=== PATIENT | male | born 2000 | race Caucasian/White ===

== ENCOUNTER 2025-06-14 10:54 | Emergency (ER) | payer BC, SELFPAY ==
[2025-06-14 10:57] VITALS: BP 138/83; PULSE 82; RESP 16; TEMP 36.8; O2SAT 98
[2025-06-14 11:54] VITALS: BP 126/82; PULSE 68; RESP 18; O2SAT 99
[2025-06-14 12:00] VITALS: BP 151/80; PULSE 76; RESP 18; O2SAT 97
--- NOTE | 2025-06-14 12:31 | EKG12_ITS ---
Test Reason : CP Blood Pressure : */* mmHG Vent. Rate : 76 BPM Atrial Rate : 76 BPM P-R Int : 136 ms QRS Dur : 84 ms QT Int : 372 ms P-R-T Axes : 51 53 20 degrees QTcB Int : 418 ms Normal sinus rhythm Normal ECG Confirmed by LANDEN NIELSEN, JESUSITA ([id number]), electronic news gathering editor RUPERTO HEART ([id number]) on 06/15/2025 7:30:06 AM Referred By: AK/TB Confirmed By: JESUSITA SCHUSTER MD
--- NOTE | 2025-06-14 12:32 | RAD_ITS ---
PROCEDURE: CHEST PA AND LATERAL 06/14/2025 REASON FOR EXAM: CHEST PAIN Weakness and syncope. TECHNIQUE: Procedure Code: RADCXR Modality: DX Procedure: CHEST PA AND LATERAL COMPARISON: None FINDINGS: Hardware: EKG electrodes are seen. Heart: The heart size is normal. Mediastinum: The mediastinal contour is unremarkable. Lungs: The lungs are clear. Bones: The bones are unremarkable. RAD/Chest PA and Lateral IMPRESSION: NEGATIVE CHEST Reading Location: [place] [id number]
[2025-06-14 12:47] LABS: Hematocrit 46.6 % (40-54); Hemoglobin 16.0 g/dL (13.0-16.5); Immature Granulocytes Count 0.050 X10^3/uL (0.0-0.0); Mean Corp Hgb Conc 34.3 g/dL (32-36); Mean Corpuscular Volume 82.8 fL (80-94); Mean Platelet Vol. 11.6 fl (6.2-12.0); NRBC Flagged by Analyzer 0 % (0-5); Platelet Count 265 K/mm3 (150-450); RBC Distribution Width CV 12.7 % (11.6-14.6); RBC Distribution Width SD 38.3 fl (35.1-43.9); Red Blood Count 5.63 M/mm3 (4.6-6.2); White Blood Count 10.2 K/mm3 (4.4-11.0)
[2025-06-14 13:00] VITALS: BP 142/94; PULSE 71; RESP 19
[2025-06-14 13:02] LABS: D-Dimer Quantitative (DVT/PE) 0.27 FEU/ug/m (0.27-0.49)
--- NOTE | 2025-06-14 13:16 | ED.VIS.CHEST ---
HPI History of Present Illness Chief Complaint: Chest Pain Narrative Narrative: Chief complaint and HPI: 25-year-old male with no significant past medical history presents for evaluation of resolved chest pain and diaphoresis. Patient states that he was driving to work when he he had an episode of diaphoresis. He states he then became anxious and developed chest pain. Currently asymptomatic. Patient states that he has had an episode of this previously in which she had an unremarkable workup. Was told to follow-up with primary care physician and cardiology which she never did. He does use tobacco. He denies any fever, chills, shortness of breath, abdominal pain, nausea, vomiting, bilateral lower extremity swelling or pain. Triage note states he has a cardiology appointment tomorrow, he states his appointment is actually with primary care. Review of systems: See HPI Medications: As listed on the chart Allergies: As listed on the chart PFSH: Per chart Vital signs: As listed on the chart. Reviewed. Physical exam: Gen: A&O x3, NAD Head: Normocephalic, atraumatic Eyes: No sclera icterus, conjunctiva clear ENT: Moist mucous membranes Neck: Trachea midline, No JVD CV: RRR, no murmurs, no peripheral edema Resp: Lungs CTA BL, no w/r/c GI: Abd soft, non-distended, non-tender, no r/r/g Musc: Full ROM, no deformity Skin: Warm, dry Neuro: Alert, oriented, grossly intact, sensation intact Psych: Cooperative, appropriate mood and affect PFS PFSH Medical History no medical history Surgical History no surgical history Social History Smoking Status: Never smoker EXAM Physical Exam Const Vital Signs: 06/14/25 10:57 06/14/25 11:40 06/14/25 11:43 Temperature 98.3 F Temperature Source Oral Pulse Rate 82 Respiratory Rate 16 Respiratory Effort Normal Blood Pressure 138/83 H Blood Pressure Mean 101 Pulse Ox 98 Oxygen Delivery Method Room Air Room Air 06/14/25 11:54 06/14/25 12:00 06/14/25 13:00 Temperature Temperature Source Pulse Rate 68 76 71 Respiratory Rate 18 18 19 H Respiratory Effort Blood Pressure 126/82 H 151/80 H 142/94 H Blood Pressure Mean 96 103 110 Pulse Ox 99 97 Oxygen Delivery Method Room Air 06/14/25 14:00 06/14/25 15:00 06/14/25 15:00 Temperature 97.8 F Temperature Source Pulse Rate 67 78 64 Respiratory Rate 17 16 18 Respiratory Effort Blood Pressure 133/80 H 124/78 H 129/78 H Blood Pressure Mean 92 93 95 Pulse Ox 98 99 Oxygen Delivery Method Room Air MDM MDM MDM Narrative Medical decision making narrative: 25-year-old male with no significant past medical history presents for evaluation of resolved chest pain and diaphoresis. Patient states that he was driving to work when he he had an episode of diaphoresis. He states he then became anxious and developed chest pain. Currently asymptomatic. Patient states that he has had an episode of this previously in which she had an unremarkable workup. Was told to follow-up with primary care physician and cardiology which she never did. He does use tobacco. He has an appointment with his primary care physician tomorrow. On presentation, patient no acute distress. He is asymptomatic. Vitals are stable other than some mild hypertension 138/83. Although patient's chest pain has resolved will give aspirin. Differential diagnosis includes but is not limited to hypoglycemia, electrolyte abnormality, arrhythmia, anemia, thyroid disease, ACS, CHF, PE, anxiety reaction. CBC unremarkable without leukocytosis or anemia. D-dimer unremarkable. BMP unremarkable. Magnesium unremarkable. BNP unremarkable. TSH unremarkable. Troponin x 2 unremarkable. Patient has remained asymptomatic here in the emergency department. No clear etiology for his symptoms. Recommend keeping his appointment with primary care physician tomorrow and return back if symptoms change or worsen. I have low suspicion for ACS and his heart score is a 0-1 which places him at low risk. He confirmed understanding of the plan. Patient stable to discharge home. EKG: Interpreted by me/EM physician: EKG shows normal sinus rhythm without any acute ischemic changes. Heart rate 76. Diagnostic: Interpreted by me/EM physician: Chest x-ray no pneumonia, effusion, cardiomegaly, pneumothorax Impression: 1. Chest pain, resolved 2. Diaphoresis, resolved Lab Data Labs: Laboratory Results - last 24 hr 06/14/25 06/14/25 12:40 14:00 WBC 10.2 RBC 5.63 Hgb 16.0 Hct 46.6 MCV 82.8 MCH 28.4 MCHC 34.3 RDW Std Deviation 38.3 RDW Coeff of Michelle 12.7 Plt Count 265 MPV 11.6 Immature Gran % (Auto) 0.500 Neut % (Auto) 68.9 Lymph % (Auto) 20.4 Crisp % (Auto) 8.9 Eos % (Auto) 0.6 Baso % (Auto) 0.7 Absolute Neuts (auto) 7.1 Absolute Lymphs (auto) 2.09 Nucleated RBC % 0 D-Dimer Quant (PE/DVT) 0.27 Sodium 139 Potassium 4.2 Chloride 104 Carbon Dioxide 21.6 Anion Gap 13 BUN 7 Creatinine 0.95 Estim Creat Clear Calc 150.12 Est GFR (MDRD) Non-Af 114 BUN/Creatinine Ratio 7.1 L Glucose 96 Calcium 9.3 Magnesium 2.1 Troponin T High Sens < 6 Troponin T Hi Sens 2 Hr < 6 NT pro BNP II < 36 TSH 2.180 Radiography Diagnostic Testing: Clinical Impression(s) from Imaging Studies Chest X-Ray 06/14/25 12:32 IMPRESSION: NEGATIVE CHEST Reading Location: [place] [id number] Discharge Plan Triage Chief Complaint: Chest Pain ED Provider: Ghassan Joel Dx/Rx/DC Orders Clinical Impression: Chest pain Instructions: ED Chest Pain, Uncertain Cause Primary Care Provider: Raul Ragland Referrals: Raul Ragland MD [Primary Care Provider, Medical] - 3-5 Days Activity Restrictions/Additional Instructions: Follow-up with your primary care physician. Keep your appointment tomorrow. Return back to the ED if symptoms change or worsen. Print Language: Guyanese Disposition Disposition: Home, Self Care Discharge Date/Time: 06/14/25 15:01
[2025-06-14 13:51] LABS: Anion Gap 13 (5-15); BUN 7 mg/dL (4-19); BUN/Creat Ratio 7.1 RATIO (10-20); Calcium,Total 9.3 mg/dL (7.6-11.0); Carbon Dioxide 21.6 mmol/L (21.0-32.0); Chloride 104 mmol/L (98-108); Estimated Creatinine Clearance 150.12 ml/min (50-250); Glucose 96 mg/dL (70-99); Magnesium 2.1 mg/dL (1.5-2.2); Potassium 4.2 mmol/L (3.3-5.1); Pro- Brain NATRIURETIC PEPTIDE < 36 pg/mL (<=450); Troponin T High Sensitivity < 6 ng/L (<=22)
[2025-06-14 14:00] VITALS: BP 133/80; PULSE 67; RESP 17
[2025-06-14 14:41] LABS: Troponin T High Sens 2 HR < 6 ng/L (<=22)
[2025-06-14 15:00] VITALS: BP 124/78; BP 129/78; PULSE 64; PULSE 78; RESP 16; RESP 18; TEMP 36.6; O2SAT 98; O2SAT 99
== END 2025-06-14 15:01 | disposition home or self-care (01) ==
PROVIDERS: Emergency Provider Surgery; PCP Family Medicine; Visit Provider Surgery
DX: R07.9 Chest pain, unspecified (principal); I10 Essential (primary) hypertension; R61 Generalized hyperhidrosis
CPT/HCPCS: 71046; 80048; 83735; 83880; 84443; 84484; 85025; 85379; 93005; 99284; A4216